=== PATIENT | female | born 1965 | race African-American/Black ===

== ENCOUNTER 2020-06-27 08:45 | Emergency (ER) | payer OTHER ==
[2020-06-27 08:55] VITALS: BP 143/83; PULSE 87; TEMP 99.1; BMI 30.9
[2020-06-27] MEDS ORDERED: KETOROLAC TROMETHAMINE 60 MG/2 ML VIAL IM ONE (10:07)
== END 2020-06-27 11:03 | disposition home or self-care (01) ==
LOC: JER 08:45
PROC: 3E0233Z Introduction of Anti-inflammatory into Muscle, Percutaneous Approach (ICD-10-PCS; principal; 2020-06-27)
DX: S39.92XA Unspecified injury of lower back, initial encounter (principal)
CPT/HCPCS: 72070-TC-FY; 72100-TC-FY; 99284-25